=== PATIENT | female | born 1950 | race Caucasian/White ===

== ENCOUNTER → 2017-06-05 | Outpatient (CLI) | payer OTHER, BC ==
[~2017-06-05] MED LIST: CLONAZEPAM1 MG PO; CLONAZEPAM2 MG PO; COUMADIN,JANTOVE1 MG PO; COUMADIN5 MG PO; CYMBALTA60 MG PO; DYAZIDE, MA1 CAPSULE PO; ENDOCET 5-3251 EACH PO; INDERAL40 MG PO; INDERAL80 MG PO; IRON325 M1 PO; KAPIDEX60 MG PO; LEVOTHYROXINE125 MCG PO; LEXAPRO20 MG PO; LO-DOSE ASPIRIN81 M1 PO; NEURONTIN300 MG PO; OXYCODONE HCL5 MG PO; PRILOSEC40 MG PO; SYNTHROID150 MCG PO; TRAMADOL HCL100 MG PO; TRIAMTERENE-HC1 EACH PO; ULTRAM ER 100100 MG PO; XARELTO10 MG PO
== END | disposition home or self-care (01) ==
LOC: NUC 07:40
DX: R93.7 Abnormal findings on diagnostic imaging of other parts of musculoskeletal system (principal); M47.892 Other spondylosis, cervical region; M19.032 Primary osteoarthritis, left wrist; M19.031 Primary osteoarthritis, right wrist; M17.0 Bilateral primary osteoarthritis of knee; Z96.653 Presence of artificial knee joint, bilateral; R26.2 Difficulty in walking, not elsewhere classified; M25.551 Pain in right hip
CPT/HCPCS: 78315; A9503